=== PATIENT | male | born 1960 | race Hispanic/Latino ===

== ENCOUNTER 2021-10-08 15:36 | Emergency (ER) | payer OTHER ==
[~2021-10-08] VITALS: Ht 172.7 cm; Wt 79.4 kg
[2021-10-08 16:53] LABS: BASOPHILS % (AUTO) 0.4 % (0.0-5.0); EOSINOPHILS % (AUTO) 1.5 % (0.0-8.0); HEMATOCRIT 43.3 % (42-54); LYMPHOCYTES % (AUTO) 12.4 % (21.0-51.0); MEAN CORPUSCULAR HEMOGLOBIN 31.3 pg (27.0-33.0); MEAN CORPUSCULAR HGB CONC 33.5 g/dL (32.0-36.0); MEAN CORPUSCULAR VOLUME 93.5 fL (79-99); MONOCYTES % (AUTO) 6.8 % (3.0-13.0); NEUTROPHILS % (AUTO) 78.5 % (40.0-77.0); PLATELET COUNT (AUTO) 283 K/uL (130-400); RED BLOOD CELL COUNT(AUTO) 4.63 MIL/uL (4.50-6.20); RED CELL DISTRIBUTION WIDTH 12.5 % (11.0-15.5); WHITE BLOOD COUNT (AUTO) 10.4 K/uL (4.8-10.8)
[2021-10-08 17:07] LABS: POTASSIUM 3.9 mmol/L (3.5-5.1)
[2021-10-08 17:11] LABS: ALBUMIN 3.6 g/dL (3.5-5.0); BILIRUBIN,TOTAL 0.3 mg/dL (0.2-1.0); TOTAL PROTEIN, SERUM 7.9 g/dL (6.0-8.3)
[2021-10-08] MEDS ORDERED: DOXYCYCLINE HYCLATE 100 MG TABLET PO SCH (18:00)
[2021-10-08] MEDS ORDERED: KETOROLAC 60 MG VIAL (30MG/ML) IM ONE (18:00)
[2021-10-08 18:08] LABS: APPEARANCE,URINE CLOUDY (CLEAR); BILIRUBIN,URINE NEGATIVE (NEGATIVE); COLOR,URINE YELLOW (YELLOW); GLUCOSE, URINE (UA) NEGATIVE (NEGATIVE); KETONES,URINE NEGATIVE (NEGATIVE); LEUKOCYTE ESTERASE ,URINE MODERATE (NEGATIVE); NITRATE,URINE POSITIVE (NEGATIVE); OCCULT BLOOD,URINE MODERATE (NEGATIVE); PROTEIN,URINE TRACE mg/dL (NEGATIVE); UROBILINOGEN,URINE 0.2 mg/dL (0.2-1.0)
[2021-10-08 18:25] LABS: BACTERIA,URINE Moderate /HPF (None Seen); WBC,URINE 26-50 /HPF (0-1)
[2021-10-08] MEDS ORDERED: NIFEDIPINE 10 MG CAP PO ONE (18:30)
[2021-10-08 18:39] LABS: SQUAMOUS EPITHELIAL CELL,UR Few /HPF (0-2)
[2021-10-08] MEDS ORDERED: CEFTRIAXONE 1G VIAL IM ONE (19:00)
[2021-10-08] MEDS ORDERED: NAPR-1180 PO (19:10)
[2021-10-08] MEDS ORDERED: DOXY-336 PO (19:10)
[2021-10-08] MEDS ORDERED: CEPH500B PO (19:10)
[2021-10-08] MEDS ORDERED: LOSA1TAB7 PO (19:10)
[2021-10-08] MEDS ORDERED: LIDOCAINE HCL-MPF 1% 2ML VIAL ONE (19:36)
[2021-10-08 19:53] VITALS: BP 157/78
== END 2021-10-08 20:00 | disposition home or self-care (01) ==
LOC: EDH 15:36
DX: N45.1 Epididymitis (principal); N39.0 Urinary tract infection, site not specified; R03.0 Elevated blood-pressure reading, without diagnosis of hypertension; R73.9 Hyperglycemia, unspecified; F12.10 Cannabis abuse, uncomplicated; Z79.899 Other long term (current) drug therapy
CPT/HCPCS: 36415; 71045; 76870; 80053; 81001; 83690; 84484; 85025; 87077; 87088; 87186; 96372 ×2; 99285; J0696; J1885; J3490